=== PATIENT | male | born 1970 | race Two or more races ===

== ENCOUNTER 2017-06-17 19:09 | Emergency (ER) | payer OTHER ==
[~2017-06-17] VITALS: Ht 182.9 cm; Wt 114.9 kg
[2017-06-17 19:13] VITALS: BP 178/110
== END 2017-06-17 20:18 | disposition home or self-care (01) ==
LOC: ED 19:50
DX: L03.011 Cellulitis of right finger (principal); I10 Essential (primary) hypertension
CPT/HCPCS: 26011; 99284

== ENCOUNTER 2017-06-19 17:17 | Emergency (ER) | payer OTHER ==
[~2017-06-19] VITALS: Ht 182.9 cm; Wt 114.7 kg
[2017-06-19 17:30] VITALS: BP 152/94
== END 2017-06-19 19:05 | disposition home or self-care (01) ==
LOC: ED 19:00
DX: L03.011 Cellulitis of right finger (principal); I10 Essential (primary) hypertension
CPT/HCPCS: 99281